=== PATIENT | male | born 1960 | race Caucasian/White ===

== ENCOUNTER 2024-08-08 15:45 | Emergency (ER) | payer OTHER ==
[~2024-08-08] VITALS: Ht 172.7 cm; Wt 73.0 kg
[2024-08-08 15:48] VITALS: TEMP 97.8; O2SAT 95
[2024-08-08 16:17] VITALS: BP 134/81; PULSE 77; RESP 19
[2024-08-08] MEDS: HYDROCODONE/ACETAMINOPHEN 5/325MG TABLET PO ONE (16:17)
[2024-08-08] MEDS ORDERED: HYDR-4001 MT (17:28)
[2024-08-08] MEDS ORDERED: IBUP-1523 MT (17:28)
== END 2024-08-08 17:38 | disposition home or self-care (01) ==
LOC: ER 15:45
DX: M25.512 Pain in left shoulder (principal)
CPT/HCPCS: 71045; 73030; 99284